=== PATIENT | male | born 1945 | race Caucasian/White ===

== ENCOUNTER 2017-08-29 06:46 | Outpatient (CLI) | payer MEDICARE | END 2017-08-29 06:47 | disposition home or self-care (01) | LOC: BICULT 06:46 | PROVIDERS: ATTEND Internal Medicine Gastroenterology | DX: K21.9 Gastro-esophageal reflux disease without esophagitis (principal); R07.9 Chest pain, unspecified; R16.0 Hepatomegaly, not elsewhere classified | CPT/HCPCS: 76705 ==

== ENCOUNTER 2017-11-26 08:34 | Outpatient (CLI) | payer MEDICARE ==
[2017-11-26] MEDS ORDERED: Iopamidol 370 76% 100 ML VIAL ONE (09:00)
--- NOTE | 2017-11-26 11:31 | CT ---
CT ABDOMEN AND PELVIS WITH IV CONTRAST: Indication: Right sided flank pain for the last 3-4 months. The patient is also having right upper qu adrant pain with constipation. Contrast: 99 cc of Isovue 370 was utilized. Comparison: No CT comparison is available. FINDINGS: Lung bases are clear. There is fatty infiltration of the liver. The gallbladder is under distended. The pancreas, adrenal g lands, and kidneys appear within normal limits. There are moderate calcifications noted involving the abdominal and pelvic vasculature. There is a normal appendix in the right lower quadrant. There is scattered colonic diverticula. Small bowel is normal appearing. No free fluid or enlarged lymph nodes are evident. The bladder, rectum, and perirectal soft tissues are unremarkable. There is a right total hip prosthesis in place. There is scattered degenerative change. IMPRESSION: 1. Fatty liver. 2. Colonic diverticulosis. 3. No definite CT explanation for the patient's right upper quadrant abdominal pain. POS: [facility]
== END 2017-11-26 08:35 | disposition home or self-care (01) ==
LOC: SCSCT 08:34
PROVIDERS: ATTEND Internal Medicine Gastroenterology
DX: R10.11 Right upper quadrant pain (principal); K59.00 Constipation, unspecified; K76.0 Fatty (change of) liver, not elsewhere classified; K57.30 Diverticulosis of large intestine without perforation or abscess without bleeding
CPT/HCPCS: 74177

== ENCOUNTER 2018-01-28 08:26 | Outpatient (CLI) | payer MEDICARE ==
--- NOTE | 2018-01-28 12:03 | MRI ---
MRI THORACIC SPINE WITHOUT CONTRAST: History: M34.14 thoracic radiculitis. Anterior pain. Comparison: None. FINDINGS: There is no acute fracture or malalignment. Mild disc desiccation throughout the thoracic spine. No significant neural foraminal or spinal canal narrowing throughout the thoracic spine. Cord signal is normal. The aortic contour is non-aneurysmal. No paraspinal muscle atrophy. IMPRESSION: No significant neural foraminal or spinal canal narrowing. No compression fracture. No nerve root abu tment. Cord signal is normal. POS: [facility]
== END 2018-01-28 08:27 | disposition home or self-care (01) ==
LOC: BICMRI 08:26
PROVIDERS: ATTEND Anesthesiology Pain Medicine
DX: M54.14 Radiculopathy, thoracic region (principal)
CPT/HCPCS: 72146

== ENCOUNTER 2020-02-16 15:33 | Observation (INO) | payer MEDICARE ==
[2020-02-16 16:06] LABS: #Eosinphils 0.1 thou/uL (0.0-0.7); #Lymphocytes 1.9 thou/uL (1.20-3.40); #Monocytes 0.6 thou/uL (0.11-0.59); #Neutrophils 3.3 thou/uL (1.40-6.50); %Basophils 0.7 % (0.0-1.0); %Eosinophils 2.4 % (0.0-10.0); %Lymphocytes 31.6 % (21.0-51.0); %Monocytes 9.4 % (0.0-10.0); %Neutrophils 55.9 % (42.0-75.0); Hemoglobin 15.8 g/dL (14.0-18.0); Mean Corpuscular HGB CONC 33.4 g/dL (32.0-36.0); Mean Corpuscular Hemoglobin 31.1 pg (27.0-31.0); Mean Corpuscular Volume 93.3 fL (78.0-98.0); Mean Platelet Volume 7.1 fL (7.4-10.4); Platelet Count 246 thou/uL (130-400); RBC Distribution Width 11.2 % (11.5-14.5); Red Blood Cell (RBC) Count 5.08 mill/uL (4.70-6.10); White Blood Cell (WBC) Count 5.9 thou/uL (4.8-10.8)
--- NOTE | 2020-02-16 16:07 | RAD ---
XR Chest 1 View Portable History: Chest pain Comparison: None. Findings: Lungs are clear. No pneumothorax or effusion. Cardiac silhouette and mediastinal contours a re within normal limits. No acute osseous abnormality. Impression: No acute intrathoracic abnormality.
[2020-02-16 16:33] LABS: ALT (SGPT) 31 U/L (8-55); AST (SGOT) 32 U/L (5-34); Alkaline Phosphatase 96 U/L (40-110); Anion Gap 15 mmol/L (10-20); BUN (Urea Nitrogen) 17 mg/dL (8.4-25.7); Bilirubin, Total 0.5 mg/dL (0.2-1.2); Calc. Creatinine Clearance 0 mL/min (70-130); Calcium 8.8 mg/dL (7.8-10.44); Carbon Dioxide 24 mmol/L (23-31); Chloride 108 mmol/L (98-107); Globulin 2.9 g/dL (2.4-3.5); Glucose 84 mg/dL (83-110); Potassium 4.7 mmol/L (3.5-5.1); Protein, Total 6.9 g/dL (5.8-8.1); Sodium 142 mmol/L (136-145)
[2020-02-16] MEDS ORDERED: Lidocaine Viscous Sol 2% 15 ml UD Cup ONE (17:59)
[2020-02-16] MEDS ORDERED: Aspirin Chewable 81 MG TAB ONE (17:59)
[2020-02-16] MEDS ORDERED: Mag-Al 1200 mg/1200 mg/30 ML UDCUP ONE (18:00)
[2020-02-16] MEDS ORDERED: Labetalol HCl 100 MG/20 ML VIAL ONE (20:13)
[2020-02-16] MEDS ORDERED: Nitroglycerin 0.4 MG TAB (25 Tab Bottle) SL PRN (20:55)
[2020-02-16] MEDS ORDERED: Acetaminophen 325 MG TAB PO PRN (20:57)
[2020-02-16] MEDS ORDERED: Acetaminophen 650 MG Suppository PR PRN (20:57)
--- NOTE | 2020-02-16 22:25 | PDOC.HHP ---
Hospitalist HPI - History of Present Illness History of Present Illness: ADMISSION DATE: 02/16/2020 TIME OF ASSESSMENT: 1999 PRIMARY CARE PHYSICIAN: Dr. Veras CHIEF COMPLAINT: Chest pain HPI: This is a 74-year-old gentleman who presents to the emergency department with complaints of chest pain that started earlier this morning. He states he was sitting down having a cup of coffee when it began and states it was a 4 out of 10 in severity, substernal, and nonradiating. It has been intermittent throughout the day and at the moment he has no chest pain unless he takes a deep breath which then causes discomfort. Denies any trauma or injuries. He reports feeling like it took his breath away early this morning but otherwise denies having any respiratory type symptoms. Has not experienced any breathlessness with exertion. Denies having any cough or hemoptysis. No recent fevers chills or sweats. He did note that his blood pressure was elevated in the 160s to 170s range systolic. Denies having any nausea or vomiting. Reports having history of GERD with epigastric discomfort but states this feels different and is higher in the midsternal region. Also reports having issues with narrowing of his e sophagus which did require dilation in the past. Patient reports having a stress test in the past but it has been more than 2 years. Also states that he recently underwent an echocardiogram. He was told by Dr. Veras that he wanted him to see a business data analyst and has an appointment scheduled with Dr. Horton for 02/25/2020. He recently had his home medications adjusted. ED COURSE: EKG done in the emergency department showed a normal sinus rhythm with a heart of 63. He had a complete right bundle branch block. No ST changes or T wave abnormalities. Labs showed a white count of 5.9, hemoglobin 15.8, hematocrit 47.3, platelets 246, neutrophils 55.9%. Sodium 142, potassium 4.7, BUN 17, creatinine 0.88, GFR 85. LFTs normal. Initial troponin negative. Chest x-ray obtained demonstrated no acute intrathoracic abnormality. In the emergency department he was given 20 mg of IV labetalol for his blood pressure. He received a GI cocktail and was given 324 mg of aspirin. PAST MEDICAL HISTORY: 1. Hypertension 2. GERD 3. 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 Obesity 5. History of right bundle branch block. PAST SURGICAL HISTORY: 1. Right hip replacement 2. Left knee surgery SOCIAL HISTORY: Denies any tobacco use alcohol consumption or drug use. He lives with his . Fully independent at baseline. FAMILY HISTORY: Denies any family history of heart disease. ALLERGIES: No known drug allergies CURRENT MEDICATIONS: 1. Gabapentin 300 mg p.o. daily 2. Losartan 100 mg p.o. daily 3. Nexium 40 mg p.o. twice daily 4. Tamsulosin 0.4 mg p.o. daily - Exam General Appearance: NAD General - other findings: VS: Temp 98.2, HR 53, O2 sat 96% on room air, RR 18, BP 165/76. Eye: PERRL, anicteric sclera ENT: normocephalic atraumatic, no oropharyngeal lesions Neck: supple, symmetric, no lymphadenopathy Heart: RRR, no murmur, no gallops, no rubs, normal peripheral pulses Respiratory: CTAB, no wheezes, no rales, no ronchi, normal chest expansion Gastrointestinal: soft, non-tender, non-distended, normal bowel sounds Extremities: no edema Skin: normal turgor, no lesions, no rashes Neurological: cranial nerve grossly intact, normal sensation to touch Musculoskeletal: normal tone, normal strength, no muscle wasting Psychiatric: normal affect, normal behavior, A&O x 3 Hospitalist Results - Labs Result Diagrams: 02/16/20 15:52 02/16/20 15:52 Lab results: WBC 5.9 thou/uL (4.8-10.8) 02/16/20 15:52 Hgb 15.8 g/dL (14.0-18.0) 02/16/20 15:52 Hct 47.3 % (42.0-52.0) 02/16/20 15:52 MCV 93.3 fL (78.0-98.0) 02/16/20 15:52 Plt Count 246 thou/uL (130-400) 02/16/20 15:52 Neutrophils % 55.9 % (42.0-75.0) 02/16/20 15:52 Sodium 142 mmol/L (136-145) 02/16/20 15:52 Potassium 4.7 mmol/L (3.5-5.1) 02/16/20 15:52 Chloride 108 mmol/L (98-107) H 02/16/20 15:52 Carbon Dioxide 24 mmol/L (23-31) 02/16/20 15:52 BUN 17 mg/dL (8.4-25.7) 02/16/20 15:52 Creatinine 0.88 mg/dL (0.7-1.3) 02/16/20 15:52 Glucose 84 mg/dL (83-110) 02/16/20 15:52 Calcium 8.8 mg/dL (7.8-10.44) 02/16/20 15:52 Total Bilirubin 0.5 mg/dL (0.2-1.2) 02/16/20 15:52 AST 32 U/L (5-34) 02/16/20 15:52 ALT 31 U/L (8-55) 02/16/20 15:52 Alkaline Phosphatase 96 U/L (40-110) 02/16/20 15:52 Troponin I 0.013 ng/mL (< 0.028) 02/16/20 18:56 Serum Total Protein 6.9 g/dL (5.8-8.1) 02/16/20 15:52 Albumin 4.0 g/dL (3.4-4.8) 02/16/20 15:52 - Radiology Interpretation Chest x-ray Status: report reviewed by ia Hospitalist H&P A/P - Problem (1) Chest pain Code(s): R07.9 - CHEST PAIN, UNSPECIFIED Status: Acute Assessment and Plan: Cardiac monitoring Continue to trend troponins Check D-Dimer, Mg+ and TSH CTA if D-dimer elevated NPO after midnight Stress test in the AM Continue ASA Lipid panel with AM labs (2) Hypertension Code(s): I10 - ESSENTIAL (PRIMARY) HYPERTENSION Status: Chronic Assessment and Plan: Monitor BP Resume home medications once verified (3) GERD (gastroesophageal reflux disease) Code(s): K21.9 - GASTRO-ESOPHAGEAL REFLUX DISEASE WITHOUT ESOPHAGITIS Status: Chronic Assessment and Plan: Famotidine 20 mg PO BID GI Cocktail Consider GI eval if cardiac work-up negative and pain persists (Could be done as outpatient) (4) Obesity Code(s): E66.9 - OBESITY, UNSPECIFIED Status: Chronic - Plan Plan: CODE STATUS FULL DVT Prophylaxis with mechanical SCDs. Walking program ordered Lovenox held given GI history, possibility of underlying eophagitis, gastritis.
[2020-02-16] MEDS ORDERED: Famotidine 20 MG TAB PO SCH (22:45)
[2020-02-17] MEDS ORDERED: Famotidine 20 MG TAB ONE (00:44)
[2020-02-17 01:18] LABS: Troponin I Less than 0.010 ng/mL (< 0.028)
[2020-02-17 05:08] LABS: #Eosinphils 0.2 thou/uL (0.0-0.7); #Lymphocytes 1.8 thou/uL (1.20-3.40); #Monocytes 0.6 thou/uL (0.11-0.59); #Neutrophils 3.9 thou/uL (1.40-6.50); %Basophils 0.7 % (0.0-1.0); %Eosinophils 3.3 % (0.0-10.0); %Lymphocytes 27.1 % (21.0-51.0); %Monocytes 9.3 % (0.0-10.0); %Neutrophils 59.6 % (42.0-75.0); Hemoglobin 15.7 g/dL (14.0-18.0); Mean Corpuscular HGB CONC 33.3 g/dL (32.0-36.0); Mean Corpuscular Hemoglobin 31.3 pg (27.0-31.0); Platelet Count 228 thou/uL (130-400); RBC Distribution Width 11.4 % (11.5-14.5); Red Blood Cell (RBC) Count 5.01 mill/uL (4.70-6.10); White Blood Cell (WBC) Count 6.5 thou/uL (4.8-10.8)
[2020-02-17 05:31] LABS: Anion Gap 12 mmol/L (10-20); BUN (Urea Nitrogen) 18 mg/dL (8.4-25.7); Calc. Creatinine Clearance 0 mL/min (70-130); Calcium 8.8 mg/dL (7.8-10.44); Carbon Dioxide 30 mmol/L (23-31); Cardiac Risk 4.3 (Less than 4.5); Chloride 107 mmol/L (98-107); Cholesterol 170 mg/dl (< 200 Desired); Glucose 96 mg/dL (83-110); HDL Cholesterol 40 mg/dL (>60 Neg Risk); LDL Cholesterol, Calculated 118 mg/dL; Potassium 4.6 mmol/L (3.5-5.1); Sodium 144 mmol/L (136-145); Triglycerides 59 mg/dL (Less than 150)
[2020-02-17] MEDS ORDERED: hydrALAZINE 20 MG/ML VIAL SLOW IVP PRN (08:47)
[2020-02-17] MEDS ORDERED: Aspirin Chewable 81 MG TAB PO SCH (09:00)
[2020-02-17] MEDS ORDERED: Famotidine 20 MG TAB PO SCH (09:00)
[2020-02-17] MEDS ORDERED: ADENOSINE 60 MG/20 ML VIAL ONE (09:09)
--- NOTE | 2020-02-17 12:18 | NM ---
NM Cardiac Stress W EF WF History: Chest pain Comparison: None. Findings: Stress and rest was performed after the intravenous administration of 32.3 and 9.3 mCi tech netium 99m sestamibi, respectively. No scar or reversible ischemia. Wall motion is normal. Calculated ejection fraction is 60%. Impression: Normal nuclear medicine cardiac stress test and ejection fraction.
[2020-02-17 12:30] LABS: SARS-CoV-2 MS2 Positive; SARS-CoV-2 N Gene Negative; SARS-CoV-2 S Gene Negative; SARS-CoV-2 by NAA Not Detected (NotDetected); SARS-CoV-2 orf1ab Negative
[2020-02-17] MEDS ORDERED: Aspirin Chewable 81 MG TAB ONE (12:37)
--- NOTE | 2020-02-17 17:25 | PDOC.DS.DS ---
Provider - Provider Date of Admission: 02/16/20 19:06 Admitting Provider: Jorge Hernandez DO Primary Care Physician: FAHAD Khan Course - Hospital Course Hospital Course: 74-year-old male presented with chest pain -He is ruled out for acute coronary syndrome with serial troponin and they were negative. He went through a nuclear stress test and it is negative for ischemia; EF of 65% Patient has an appointment with Dr. Horton next week. TSh in the normal range LDL is 118. His LFTs in the normal range. I gave him a low-dose Zocor. He is not on statin in the past. Encouraged him to have lifestyle modifications including diet and exercise. he can also discuss with Dr. Horton about continuing this statin versus trial of lifestyle modifications in the next month or 2. I believe he would benefit with starting him on a statin given his age as well as obesity. He is not diabetic. I also encouraged him to discuss with Dr. Horton whether to continue this Zocor but at higher dose versus switching it to Lipitor. GERD (gastroesophageal reflux disease) -Patient is on a PPI at home. Stable to be discharged home today. Resuscitation Status: 02/16/20 20:57 Resuscitation Status Routine Co-Sign Provider: Resuscitation Status: FULL: Full Resuscitation - Labs Lab Results: 02/17/20 04:54 02/17/20 04:54 Abnormal Lab Results - Last 48 hrs 02/16/20 15:52: MCH 31.1 H, RDW 11.2 L, MPV 7.1 L, Monocytes # 0.6 H 02/16/20 15:52: Chloride 108 H 02/17/20 00:30: D-Dimer 0.45 H 02/17/20 04:54: MCH 31.3 H, RDW 11.4 L, MPV 7.0 L, Monocytes # 0.6 H - Physical Exam Physical Exam: The patient was seen and examined on the day of discharge. Patient seen after his stress test is completed. His stress test is negative. Discussed his discharge plan. Patient has an appointment in the coming week with Dr. Horton. He also noted to have some blood after urine. Trace amount. No prior history of any hematuria. He does have a history of BPH and he is on Flomax. Plan - Discharge Medications Prescriptions: Aspirin Chewable [Aspirin Chewable Tablet] 81 mg PO DAILY 30 Days #30 tab Simvastatin [Zocor] 20 mg PO DAILY 30 Days #30 tablet Home Medications: Medication Instructions Recorded Confirmed Type Aspirin Chewable [Aspirin Chewable 81 mg PO DAILY 30 Days #30 tab 02/17/20 Rx Tablet] Simvastatin [Zocor] 20 mg PO DAILY 30 Days #30 tablet 02/17/20 Rx Allergies: No Known Drug Allergies Allergy (Unverified 02/16/20 22:30) PER ER NOTES - Discharge Instructions Discharge Instructions:: Follow-up in 1 week Activity:: Activity as Tolerated Nourishment:: Heart Healthy Diet - Follow up Plan Referrals: Addie Willson FNP [Primary Care Provider] - Disposition: HOME Quality - Care Measures CORE MEASURES:: N/A
--- NOTE | 2020-02-21 16:51 | EKG ---
Test Reason : Blood Pressure : / mmHG Vent. Rate : 063 BPM Atrial Rate : 063 BPM P-R Int : 150 ms QRS Dur : 138 ms QT Int : 426 ms P-R-T Axes : 004 -06 000 degrees QTc Int : 435 ms Normal sinus rhythm Right bundle branch block Minimal voltage criteria for LVH, may be normal variant Abnormal ECG Confirmed by MAYKEL CHAHAL ([id number]), website/blog editor EVGENY CID ([id number]) on 02/21/2020 4:51:09 PM Referred By: Confirmed By:MAYKEL Serra
== END 2020-02-17 13:35 | disposition home or self-care (01) ==
LOC: ERS 15:33 → ERHOLD 19:06
PROVIDERS: ADMIT Family Medicine; ATTEND Internal Medicine
DX: R07.9 Chest pain, unspecified (principal); K21.9 Gastro-esophageal reflux disease without esophagitis; I10 Essential (primary) hypertension; E66.9 Obesity, unspecified; Z96.641 Presence of right artificial hip joint; Z20.828 Contact with and (suspected) exposure to other viral communicable diseases
CPT/HCPCS: 71045; 78452; 80048; 80053; 80061; 83735; 83880; 84443; 84484 ×3; 85025 ×2; 85379; 93005; 93017; 96374; 96375; 99285; A9500; G0378 ×2; U0003; 36415; 87635; J0153; J0360

== ENCOUNTER 2020-06-24 17:40 | Emergency (ER) | payer MEDICARE ==
[~2020-06-24 17:40] MED LIST: Iopamidol 370 76% 100 ML VIAL ONE
[2020-06-24 18:37] LABS: #Basophils 0.1 thou/uL (0.0-0.2); #Eosinphils 0.2 thou/uL (0.0-0.7); #Monocytes 0.6 thou/uL (0.11-0.59); #Neutrophils 3.7 thou/uL (1.40-6.50); %Eosinophils 3.4 % (0.0-10.0); %Lymphocytes 29.9 % (21.0-51.0); %Monocytes 9.3 % (0.0-10.0); %Neutrophils 56.3 % (42.0-75.0); Hemoglobin 15.5 g/dL (14.0-18.0); Mean Corpuscular HGB CONC 33.5 g/dL (32.0-36.0); Mean Corpuscular Hemoglobin 31.6 pg (27.0-31.0); Mean Corpuscular Volume 94.4 fL (78.0-98.0); Mean Platelet Volume 7.3 fL (7.4-10.4); Platelet Count 234 thou/uL (130-400); RBC Distribution Width 11.5 % (11.5-14.5); Red Blood Cell (RBC) Count 4.91 mill/uL (4.70-6.10); White Blood Cell (WBC) Count 6.6 thou/uL (4.8-10.8)
[2020-06-24 19:00] LABS: ALT (SGPT) 30 U/L (8-55); AST (SGOT) 32 U/L (5-34); Alkaline Phosphatase 116 U/L (40-110); Anion Gap 13 mmol/L (10-20); BUN (Urea Nitrogen) 19 mg/dL (8.4-25.7); Bilirubin, Total 0.3 mg/dL (0.2-1.2); Calc. Creatinine Clearance 0 mL/min (70-130); Calcium 9.5 mg/dL (7.8-10.44); Carbon Dioxide 24 mmol/L (23-31); Chloride 107 mmol/L (98-107); Glucose 103 mg/dL (83-110); Lipase 28 U/L (8-78); Sodium 140 mmol/L (136-145)
[2020-06-24] MEDS ORDERED: Morphine 4 MG/ML VIAL ONE (19:56)
[2020-06-24] MEDS ORDERED: Ondansetron PF 4 MG/2 ML Vial ONE (19:56)
[2020-06-24 20:29] LABS: Bilirubin Negative (Negative); Blood, Urine Negative (Negative); Clarity Clear (Clear); Glucose, Urine (Dipstick) Normal (Negative); Ketone, Urine Negative (Negative); Leukocyte Negative Leu/uL (Negative); Nitrite Negative (Negative); Protein, Urine (Dipstick) Negative (Neg-Trace); Specific Gravity, Urine 1.014 (1.002-1.036); Urobilinogen Normal mg/dL (Less than 2)
== END 2020-06-24 21:57 | disposition home or self-care (01) ==
LOC: ERS 17:40
DX: K57.32 Diverticulitis of large intestine without perforation or abscess without bleeding (principal); I10 Essential (primary) hypertension; K21.9 Gastro-esophageal reflux disease without esophagitis
CPT/HCPCS: 36415; 74177; 80053; 81003; 83690; 85025; 94760; 96374; 96375; J2270; J2405; Q9967

== ENCOUNTER 2020-06-30 15:00 | Inpatient (IN) | payer MEDICARE ==
[2020-06-30 20:12] LABS: Anion Gap 16 mmol/L (10-20); BUN (Urea Nitrogen) 20 mg/dL (8.4-25.7); Calc. Creatinine Clearance 0 mL/min (70-130); Carbon Dioxide 24 mmol/L (23-31); Chloride 106 mmol/L (98-107); Glucose 74 mg/dL (83-110); Potassium 4.7 mmol/L (3.5-5.1); Sodium 141 mmol/L (136-145)
[2020-06-30 20:33] LABS: Hemoglobin 15.5 g/dL (13.5-17.5); Mean Corpuscular HGB CONC 33.3 g/dL (32.0-36.0); Mean Corpuscular Hemoglobin 30.4 pg (27.0-33.0); Mean Corpuscular Volume 91.4 fl (81.2-95.1); Mean Platelet Volume 10.2 fl (7.4-10.4); Platelet Count 219 10x3/uL (150-450); RBC Distribution Width 12.5 % (11.5-14.5); White Blood Cell (WBC) Count 6.6 10x3/uL (3.5-10.5)
[2020-07-01 09:56] VITALS: BMI 35.4
[2020-07-01 13:46] LABS: SARS-CoV-2 NAA Rapid Test Not Detected (NotDetected)
[2020-07-02] MEDS ORDERED: Midazolam HCl 2 mg/2 ml Vial ONE (06:38)
[2020-07-02] MEDS ORDERED: Fentanyl 100 MCG/2 ML VIAL ONE (06:38)
[2020-07-02] MEDS ORDERED: Vecuronium 10 MG VIAL ONE ×3 (06:39→07:57)
[2020-07-02] MEDS ORDERED: Midazolam HCl 5 mg/5 ml Vial ONE (06:39)
[2020-07-02] MEDS ORDERED: Dexmedetomidine 200 MCG/2 ML VIAL ONE (06:39)
[2020-07-02] MEDS ORDERED: Albumin 5% 500 ML ONE (07:49)
[2020-07-02] MEDS ORDERED: Glycopyrrolate 0.2 MG/ML 5 ML SYRINGE ONE (07:57)
[2020-07-02] MEDS ORDERED: Aminocaproic Acid 5 GM/20 ML VIAL ONE (07:57)
[2020-07-02] MEDS ORDERED: PHENYLEPHRINE-NS 100 MCG/ML 10 ML SYRINGE ONE (07:57)
[2020-07-02] MEDS ORDERED: Nitroglycerin 50 MG/250 ML BOT ONE (07:57)
[2020-07-02] MEDS ORDERED: Heparin 30,000 units/30 ml VIAL ONE (07:57)
[2020-07-02] MEDS ORDERED: Lidocaine 1% PF 5 ML VIAL ONE ×2 (07:57)
[2020-07-02] MEDS ORDERED: Heparin 5,000 UNITS/ML VIAL ONE (07:57)
[2020-07-02] MEDS ORDERED: Thrombin 5000 UNITS/5 ML VIAL ONE (07:57)
[2020-07-02] MEDS ORDERED: Dexamethasone 20 MG/5 ML VIAL ONE (07:57)
[2020-07-02] MEDS ORDERED: Mannitol 12.5 GM/50 ML ONE (07:57)
[2020-07-02] MEDS ORDERED: Ondansetron PF 4 MG/2 ML Vial ONE (07:57)
[2020-07-02] MEDS ORDERED: Cardioplegic Soln 1,000 ML BAG ONE (07:57)
[2020-07-02] MEDS ORDERED: Papaverine 60 MG/2 ML VIAL ONE (07:57)
[2020-07-02] MEDS ORDERED: Protamine Sulfate 250 MG/25 ML VIAL ONE (07:57)
[2020-07-02] MEDS ORDERED: Lidocaine 2% PF 100 mg/5 ml Syringe ONE (07:57)
[2020-07-02] MEDS ORDERED: ePHEDrine Sulfate 50 MG/10 ML VIAL ONE (07:57)
[2020-07-02] MEDS ORDERED: Calcium Chloride 1 GM/10 ML Abboject SYRINGE ONE (07:57)
[2020-07-02] MEDS ORDERED: Potassium Chloride 60 MEQ/30 ML VIAL ONE (07:57)
[2020-07-02] MEDS ORDERED: Ketorolac Tromethamine 30 MG/ML VIAL ONE (07:57)
[2020-07-02] MEDS ORDERED: Magnesium Sulfate 1 GM/2 ML VIAL ONE (07:57)
[2020-07-02] MEDS ORDERED: Sodium Bicarb 50 MEQ/50 ML Abboject 8.4% SYRINGE ONE (07:57)
[2020-07-02] MEDS ORDERED: Post-Op Insulin Drip Protocol IVPB ONE (11:11)
[2020-07-02] MEDS ORDERED: Bisacodyl 5 MG TAB PO PRN (11:11)
[2020-07-02] MEDS ORDERED: DOPamine 400 MG/D5W 250 ML 250 ML IVPB PRN (11:11)
[2020-07-02] MEDS ORDERED: hydrALAZINE 20 MG/ML VIAL SLOW IVP PRN (11:11)
[2020-07-02] MEDS ORDERED: Fentanyl 100 MCG/2 ML VIAL SLOW IVP PRN (11:11)
[2020-07-02] MEDS ORDERED: niCARdipine 25 MG in Sodium Chloride 0.9% 250 ML 250 ML IVPB PRN (11:11)
[2020-07-02] MEDS ORDERED: Hetastarch 6% 500 ML 500 ML IVPB PRN (11:11)
[2020-07-02] MEDS ORDERED: Mag-Al 1200 mg/1200 mg/30 ML UDCUP PO PRN (11:11)
[2020-07-02] MEDS ORDERED: Nitroglycerin 50 MG/250 ML BOT 250 ML IVPB PRN (11:11)
[2020-07-02] MEDS ORDERED: Promethazine HCl 25 MG/ML VIAL IVPB PRN (11:11)
[2020-07-02] MEDS ORDERED: Guaifenesin DM 100-10/5 ML UDCUP PO PRN (11:11)
[2020-07-02] MEDS ORDERED: Bisacodyl 10 MG SUPP PR PRN (11:11)
[2020-07-02] MEDS ORDERED: Norepinephrine 8 MG/0.9% NS 250 ML IVPB PRN (11:11)
[2020-07-02] MEDS ORDERED: Morphine 2 MG/ML VIAL SLOW IVP PRN (11:11)
[2020-07-02] MEDS ORDERED: Acetaminophen 325 MG TAB PO PRN (11:11)
[2020-07-02] MEDS: Ondansetron PF 4 MG/2 ML Vial IVP PRN (11:23)
[2020-07-02] MEDS: Fentanyl 100 MCG/2 ML VIAL SLOW IVP PRN ×5 (11:23→22:15)
[2020-07-02] MEDS: Lactated Ringer's 1,000 ML IV SCH ×2 (11:29→20:36)
[2020-07-02] MEDS ORDERED: Dextrose 5% in Water 1,000 ML IV PRN (11:30)
[2020-07-02] MEDS ORDERED: Dextrose 50% Abboject 50 ML SYRINGE SLOW IVP PRN (11:30)
[2020-07-02] MEDS ORDERED: Lantus 1000 UNITS/10 ML VIAL SC PRN (11:30)
[2020-07-02] MEDS ORDERED: HUMULIN R 100 UNITS in Sodium Chloride 0.9% 100 ML IVPB SCH (11:30)
[2020-07-02] MEDS: Ketorolac Tromethamine 30 MG/ML VIAL IVP SCH ×3 (11:31→21:17)
[2020-07-02 11:41] LABS: INR-International Normal Ratio 1.2; PTT 29.8 sec (22.9-36.1); Prothrombin Time 15.5 sec (12.0-14.7)
[2020-07-02 11:47] LABS: #Eosinphils 0.1 thou/uL (0.0-0.7); #Lymphocytes 1.2 thou/uL (1.20-3.40); #Monocytes 0.6 thou/uL (0.11-0.59); #Neutrophils 12.7 thou/uL (1.40-6.50); %Basophils 0.1 % (0.0-1.0); %Eosinophils 0.5 % (0.0-10.0); %Lymphocytes 8.5 % (21.0-51.0); %Monocytes 3.9 % (0.0-10.0); Hemoglobin 12.4 g/dL (14.0-18.0); Mean Corpuscular HGB CONC 32.4 g/dL (32.0-36.0); Mean Corpuscular Hemoglobin 30.7 pg (27.0-31.0); Mean Corpuscular Volume 94.7 fL (78.0-98.0); Mean Platelet Volume 7.3 fL (7.4-10.4); Platelet Count 179 thou/uL (130-400); RBC Distribution Width 11.4 % (11.5-14.5); Red Blood Cell (RBC) Count 4.04 mill/uL (4.70-6.10); White Blood Cell (WBC) Count 14.5 thou/uL (4.8-10.8)
[2020-07-02 11:51] LABS: Anion Gap 8 mmol/L (10-20); BUN (Urea Nitrogen) 14 mg/dL (8.4-25.7); Calc. Creatinine Clearance 141 mL/min (70-130); Calcium 7.4 mg/dL (7.8-10.44); Carbon Dioxide 24 mmol/L (23-31); Chloride 112 mmol/L (98-107); Glucose 157 mg/dL (83-110); Potassium 4.1 mmol/L (3.5-5.1); Sodium 140 mmol/L (136-145)
[2020-07-02] MEDS: Insulin Regular 300 UNITS/3 ML VIAL SC PRN ×2 (11:56→15:34)
[2020-07-02] MEDS: CEFAZOLIN 2 GM in Premix Bag 1 BAG IVPB SCH ×2 (13:08→21:18)
[2020-07-02] MEDS: HYDROcodone/Acetaminophen 5/325 mg Tablet PO PRN ×2 (15:17→20:03)
[2020-07-02 16:59] LABS: Hemoglobin 13.2 g/dL (14.0-18.0)
[2020-07-02] MEDS: Potassium Chloride 20 MEQ/100 ML PREMIX BAG IVPB PRN (17:47)
[2020-07-02] MEDS ORDERED: BIO FREEZE TOP PRN (18:44)
[2020-07-02] MEDS: Famotidine/PF 20 mg/2ml Vial SLOW IVP SCH (20:05)
[2020-07-02] MEDS: Atorvastatin Calcium 40 MG TAB PO SCH (20:05)
[2020-07-02] MEDS ORDERED: Atorvastatin Calcium 10 MG TAB PO SCH (21:00)
[2020-07-02] MEDS: Cyclobenzaprine 10 MG TAB PO PRN (21:19)
[2020-07-03] MEDS: HYDROcodone/Acetaminophen 5/325 mg Tablet PO PRN ×4 (00:10→20:31)
[2020-07-03] MEDS: Lactated Ringer's 1,000 ML IV SCH (02:01)
[2020-07-03] MEDS: Fentanyl 100 MCG/2 ML VIAL SLOW IVP PRN ×3 (02:02→08:37)
[2020-07-03] MEDS: Ketorolac Tromethamine 30 MG/ML VIAL IVP SCH ×3 (03:18→16:18)
[2020-07-03 03:35] LABS: #Lymphocytes 0.9 thou/uL (1.20-3.40); #Monocytes 0.9 thou/uL (0.11-0.59); #Neutrophils 8.7 thou/uL (1.40-6.50); %Basophils 0.1 % (0.0-1.0); %Eosinophils 0.1 % (0.0-10.0); %Lymphocytes 8.4 % (21.0-51.0); %Monocytes 8.2 % (0.0-10.0); %Neutrophils 83.3 % (42.0-75.0); Hemoglobin 12.3 g/dL (14.0-18.0); Mean Corpuscular HGB CONC 33.8 g/dL (32.0-36.0); Mean Corpuscular Hemoglobin 32.2 pg (27.0-31.0); Mean Corpuscular Volume 95.2 fL (78.0-98.0); Mean Platelet Volume 7.1 fL (7.4-10.4); Platelet Count 197 thou/uL (130-400); RBC Distribution Width 11.6 % (11.5-14.5); Red Blood Cell (RBC) Count 3.84 mill/uL (4.70-6.10); White Blood Cell (WBC) Count 10.4 thou/uL (4.8-10.8)
[2020-07-03 03:53] LABS: Anion Gap 10 mmol/L (10-20); BUN (Urea Nitrogen) 18 mg/dL (8.4-25.7); Calc. Creatinine Clearance 144 mL/min (70-130); Carbon Dioxide 24 mmol/L (23-31); Chloride 109 mmol/L (98-107); Glucose 126 mg/dL (83-110); Sodium 139 mmol/L (136-145)
[2020-07-03] MEDS: Potassium Chloride 20 MEQ/100 ML PREMIX BAG IVPB PRN (04:22)
[2020-07-03] MEDS: CEFAZOLIN 2 GM in Premix Bag 1 BAG IVPB SCH (05:40)
[2020-07-03] MEDS: Ondansetron PF 4 MG/2 ML Vial IVP PRN (06:41)
[2020-07-03] MEDS: Famotidine/PF 20 mg/2ml Vial SLOW IVP SCH (07:23)
[2020-07-03] MEDS: Polyethylene Glycol 3350 17 GM Packet PO SCH (07:24)
[2020-07-03] MEDS: Enoxaparin Sodium 40 MG/0.4 ML SYRINGE SC SCH (07:26)
[2020-07-03] MEDS: Cyclobenzaprine 10 MG TAB PO PRN (08:36)
[2020-07-03] MEDS ORDERED: Aspirin 325 MG TAB PO SCH (09:00)
[2020-07-03] MEDS ORDERED: Dutasteride 0.5 MG CAP PO SCH (11:00)
[2020-07-03] MEDS ORDERED: Mineral Oil ENEMA PR PRN (11:18)
[2020-07-03] MEDS ORDERED: diphenhydrAMINE 25 MG CAP PO PRN (11:18)
[2020-07-03] MEDS ORDERED: Zolpidem Tartrate 5 MG TAB PO PRN (11:18)
[2020-07-03] MEDS ORDERED: Bisacodyl 10 MG SUPP PR PRN (11:18)
[2020-07-03] MEDS ORDERED: Guaifenesin DM 100-10/5 ML UDCUP PO PRN (11:18)
[2020-07-03] MEDS ORDERED: Bisacodyl 5 MG TAB PO PRN (11:18)
[2020-07-03] MEDS ORDERED: Nitroglycerin 0.4 MG TAB (25 Tab Bottle) SL PRN (11:18)
[2020-07-03] MEDS: Furosemide 40 MG/4 ML VIAL SLOW IVP SCH ×2 (13:35→14:18)
[2020-07-03] MEDS: Furosemide 20 MG TAB PO SCH (14:18)
[2020-07-03] MEDS: Mag-Al 1200 mg/1200 mg/30 ML UDCUP PO PRN (16:20)
[2020-07-03] MEDS: Atorvastatin Calcium 40 MG TAB PO SCH (20:31)
[2020-07-03] MEDS: Docusate 100 MG CAP PO SCH (20:32)
[2020-07-04] MEDS: HYDROcodone/Acetaminophen 5/325 mg Tablet PO PRN ×4 (01:35→19:39)
[2020-07-04 05:30] LABS: #Lymphocytes 1.2 thou/uL (1.20-3.40); #Monocytes 0.9 thou/uL (0.11-0.59); #Neutrophils 6.7 thou/uL (1.40-6.50); %Basophils 0.2 % (0.0-1.0); %Eosinophils 0.5 % (0.0-10.0); %Lymphocytes 13.4 % (21.0-51.0); %Monocytes 10.4 % (0.0-10.0); %Neutrophils 75.6 % (42.0-75.0); Mean Corpuscular HGB CONC 32.2 g/dL (32.0-36.0); Mean Corpuscular Hemoglobin 30.7 pg (27.0-31.0); Mean Corpuscular Volume 95.4 fL (78.0-98.0); Mean Platelet Volume 7.9 fL (7.4-10.4); Platelet Count 171 thou/uL (130-400); RBC Distribution Width 11.7 % (11.5-14.5); Red Blood Cell (RBC) Count 3.92 mill/uL (4.70-6.10); White Blood Cell (WBC) Count 8.8 thou/uL (4.8-10.8)
[2020-07-04 05:48] LABS: Anion Gap 10 mmol/L (10-20); BUN (Urea Nitrogen) 20 mg/dL (8.4-25.7); Calc. Creatinine Clearance 131 mL/min (70-130); Calcium 8.1 mg/dL (7.8-10.44); Carbon Dioxide 24 mmol/L (23-31); Chloride 107 mmol/L (98-107); Glucose 107 mg/dL (83-110); Sodium 137 mmol/L (136-145)
[2020-07-04] MEDS: Enoxaparin Sodium 40 MG/0.4 ML SYRINGE SC SCH (08:17)
[2020-07-04] MEDS: Dutasteride 0.5 MG CAP PO SCH (08:18)
[2020-07-04] MEDS: Furosemide 20 MG TAB PO SCH ×2 (08:18→13:55)
[2020-07-04] MEDS: Aspirin 81 mg Enteric Coated Tablet PO SCH (08:18)
[2020-07-04] MEDS: Docusate 100 MG CAP PO SCH ×2 (08:18→19:39)
[2020-07-04] MEDS: Polyethylene Glycol 3350 17 GM Packet PO SCH (08:18)
[2020-07-04] MEDS ORDERED: Colchicine 0.6 MG TAB PO SCH (10:00)
[2020-07-04] MEDS: Atorvastatin Calcium 40 MG TAB PO SCH (19:39)
[2020-07-04] MEDS: Colchicine 0.6 MG TAB PO SCH (19:39)
[2020-07-04] MEDS: Cyclobenzaprine 10 MG TAB PO PRN (21:34)
[2020-07-05 04:36] LABS: #Eosinphils 0.2 thou/uL (0.0-0.7); #Monocytes 0.9 thou/uL (0.11-0.59); #Neutrophils 4.3 thou/uL (1.40-6.50); %Basophils 0.1 % (0.0-1.0); %Eosinophils 2.9 % (0.0-10.0); %Lymphocytes 27.1 % (21.0-51.0); %Monocytes 12.2 % (0.0-10.0); %Neutrophils 57.6 % (42.0-75.0); Hemoglobin 11.9 g/dL (14.0-18.0); Mean Corpuscular HGB CONC 33.6 g/dL (32.0-36.0); Mean Corpuscular Volume 95.2 fL (78.0-98.0); Mean Platelet Volume 7.5 fL (7.4-10.4); Platelet Count 179 thou/uL (130-400); RBC Distribution Width 11.4 % (11.5-14.5); Red Blood Cell (RBC) Count 3.71 mill/uL (4.70-6.10); White Blood Cell (WBC) Count 7.5 thou/uL (4.8-10.8)
[2020-07-05] MEDS: HYDROcodone/Acetaminophen 5/325 mg Tablet PO PRN ×4 (04:48→23:02)
[2020-07-05 04:53] LABS: Anion Gap 8 mmol/L (10-20); BUN (Urea Nitrogen) 13 mg/dL (8.4-25.7); Calc. Creatinine Clearance 128 mL/min (70-130); Calcium 8.4 mg/dL (7.8-10.44); Carbon Dioxide 31 mmol/L (23-31); Chloride 103 mmol/L (98-107); Glucose 94 mg/dL (83-110); Potassium 3.9 mmol/L (3.5-5.1); Sodium 138 mmol/L (136-145)
[2020-07-05] MEDS: Dutasteride 0.5 MG CAP PO SCH (08:18)
[2020-07-05] MEDS: Enoxaparin Sodium 40 MG/0.4 ML SYRINGE SC SCH (08:18)
[2020-07-05] MEDS: Cyclobenzaprine 10 MG TAB PO PRN (08:18)
[2020-07-05] MEDS: Furosemide 20 MG TAB PO SCH ×2 (08:19→13:35)
[2020-07-05] MEDS: Docusate 100 MG CAP PO SCH ×2 (08:19→20:24)
[2020-07-05] MEDS: Famotidine 20 MG TAB PO SCH ×2 (08:19→20:24)
[2020-07-05] MEDS: Aspirin 81 mg Enteric Coated Tablet PO SCH (08:19)
[2020-07-05] MEDS: Colchicine 0.6 MG TAB PO SCH ×2 (08:19→20:24)
[2020-07-05] MEDS: Polyethylene Glycol 3350 17 GM Packet PO SCH (08:19)
[2020-07-05 09:55] LABS: Actual Bicarbonate (HCO3a) 20.4 mEq/L (22-28); Analyzer IN Cardio OR; Base Excess (BEa) -3.6 mEq/L (-2.0 to +3.0); CO2 Tension 33.5 mmHg (35.0-45.0); Calcium, Ionized (arterial) 1.06 mmol/L (1.12-1.30); Carboxyhemoglobin (COHb) 0.1 gm% (0.0-3.0); Hemoglobin (Hb) 12.4 g/dL (14.0-18.0); Potassium - ABG Lab 4.08 mmol/L (3.70-5.30)
[2020-07-05 09:55] LABS: Actual Bicarbonate (HCO3a) 26.6 mEq/L (22-28); Analyzer IN Cardio OR; Base Excess (BEa) 0.8 mEq/L (-2.0 to +3.0); CO2 Tension 48.3 mmHg (35.0-45.0); Calcium, Ionized (arterial) 1.01 mmol/L (1.12-1.30); Carboxyhemoglobin (COHb) 0.3 gm% (0.0-3.0); Hemoglobin (Hb) 10.3 g/dL (14.0-18.0); O2 Tension (PaO2), arterial 326.2 mmHg (> 70.0); Potassium - ABG Lab 4.62 mmol/L (3.70-5.30); pH, Arterial 7.36 (7.35-7.45)
[2020-07-05 09:56] LABS: Actual Bicarbonate (HCO3a) 25.4 mEq/L (22-28); Analyzer IN Cardio OR; Base Excess (BEa) -0.6 mEq/L (-2.0 to +3.0); CO2 Tension 47.8 mmHg (35.0-45.0); Calcium, Ionized (arterial) 0.98 mmol/L (1.12-1.30); Carboxyhemoglobin (COHb) 0.3 gm% (0.0-3.0); Hemoglobin (Hb) 11.8 g/dL (14.0-18.0); Potassium - ABG Lab 4.16 mmol/L (3.70-5.30); pH, Arterial 7.34 (7.35-7.45)
[2020-07-05 09:57] LABS: Actual Bicarbonate (HCO3a) 22.4 mEq/L (22-28); Analyzer IN Cardio OR; CO2 Tension 37.3 mmHg (35.0-45.0); Calcium, Ionized (arterial) 1.12 mmol/L (1.12-1.30); Carboxyhemoglobin (COHb) 0.3 gm% (0.0-3.0); Hemoglobin (Hb) 13.6 g/dL (14.0-18.0); O2 Tension (PaO2), arterial 301.8 mmHg (> 70.0); Potassium - ABG Lab 4.03 mmol/L (3.70-5.30)
[2020-07-05 09:58] LABS: Actual Bicarbonate (HCO3a) 23.1 mEq/L (22-28); Analyzer IN Cardio OR; Base Excess (BEa) -1.5 mEq/L (-2.0 to +3.0); CO2 Tension 38.6 mmHg (35.0-45.0); Calcium, Ionized (arterial) 1.15 mmol/L (1.12-1.30); Carboxyhemoglobin (COHb) 0.5 gm% (0.0-3.0); Hemoglobin (Hb) 14.1 g/dL (14.0-18.0); O2 Tension (PaO2), arterial 419.1 mmHg (> 70.0); Potassium - ABG Lab 3.91 mmol/L (3.70-5.30); Puncture Site Arterial Line; pH, Arterial 7.39 (7.35-7.45)
[2020-07-05 09:59] LABS: Puncture Site Arterial Line
[2020-07-05 09:59] LABS: Puncture Site Arterial Line
[2020-07-05 09:59] LABS: Puncture Site Arterial Line
[2020-07-05 10:03] LABS: O2 Tension (PaO2), arterial 509.8 mmHg (> 70.0); Puncture Site Arterial Line
[2020-07-05] MEDS: Atorvastatin Calcium 40 MG TAB PO SCH (20:24)
[2020-07-05] MEDS: Metoprolol Tartrate 25 MG TAB PO SCH (20:24)
[2020-07-06] MEDS: Polyethylene Glycol 3350 17 GM Packet PO SCH (08:16)
[2020-07-06] MEDS: Colchicine 0.6 MG TAB PO SCH (08:17)
[2020-07-06] MEDS: Famotidine 20 MG TAB PO SCH ×2 (08:17→20:19)
[2020-07-06] MEDS: Aspirin 81 mg Enteric Coated Tablet PO SCH (08:17)
[2020-07-06] MEDS: Docusate 100 MG CAP PO SCH ×2 (08:17→20:19)
[2020-07-06] MEDS: Metoprolol Tartrate 25 MG TAB PO SCH ×3 (08:17→20:20)
[2020-07-06] MEDS: Enoxaparin Sodium 40 MG/0.4 ML SYRINGE SC SCH (08:17)
[2020-07-06] MEDS: Dutasteride 0.5 MG CAP PO SCH (08:17)
[2020-07-06] MEDS ORDERED: Colchicine 0.6 MG TAB PO SCH (09:00)
[2020-07-06] MEDS: HYDROcodone/Acetaminophen 5/325 mg Tablet PO PRN ×2 (11:55→20:17)
[2020-07-06] MEDS: Mag-Al 1200 mg/1200 mg/30 ML UDCUP PO PRN (20:17)
[2020-07-06] MEDS: Atorvastatin Calcium 40 MG TAB PO SCH (20:19)
[2020-07-07] MEDS: HYDROcodone/Acetaminophen 5/325 mg Tablet PO PRN ×2 (07:42→13:59)
[2020-07-07] MEDS: Mag-Al 1200 mg/1200 mg/30 ML UDCUP PO PRN (07:42)
[2020-07-07] MEDS: Docusate 100 MG CAP PO SCH (09:56)
[2020-07-07] MEDS: Aspirin 81 mg Enteric Coated Tablet PO SCH (09:57)
[2020-07-07] MEDS: Dutasteride 0.5 MG CAP PO SCH (09:58)
[2020-07-07] MEDS: Famotidine 20 MG TAB PO SCH (09:58)
[2020-07-07] MEDS: Enoxaparin Sodium 40 MG/0.4 ML SYRINGE SC SCH (09:59)
[2020-07-07] MEDS: Polyethylene Glycol 3350 17 GM Packet PO SCH (09:59)
[2020-07-07 14:10] VITALS: BP 146/72; TEMP 97.8
== END 2020-07-07 14:08 | disposition home or self-care (01) | DRG 236 ==
LOC: SURG A 07-02 06:32 → CCU 07-02 10:06 → 2NO 07-03 10:59
PROVIDERS: ADMIT Thoracic Surgery (Cardiothoracic Vascular Surgery); ATTEND Thoracic Surgery (Cardiothoracic Vascular Surgery)
PROC: 021009W Bypass Coronary Artery, One Artery from Aorta with Autologous Venous Tissue, Open Approach (ICD-10-PCS; principal; 2020-07-02)
PROC: 02100Z9 Bypass Coronary Artery, One Artery from Left Internal Mammary, Open Approach (ICD-10-PCS; 2020-07-02)
PROC: 06BQ0ZZ Excision of Left Saphenous Vein, Open Approach (ICD-10-PCS; 2020-07-02)
PROC: 5A1221Z Performance of Cardiac Output, Continuous (ICD-10-PCS; 2020-07-02)
DX: I25.110 Atherosclerotic heart disease of native coronary artery with unstable angina pectoris (principal); I47.1 Supraventricular tachycardia; I31.9 Disease of pericardium, unspecified; I10 Essential (primary) hypertension; Z96.641 Presence of right artificial hip joint; Z96.612 Presence of left artificial shoulder joint; Z82.49 Family history of ischemic heart disease and other diseases of the circulatory system; E78.2 Mixed hyperlipidemia; E66.9 Obesity, unspecified; Z68.34 Body mass index [BMI] 34.0-34.9, adult
CPT/HCPCS: 36415; 36416; 36430; 71045; 80048; 82805; 85025; 85027; 85610; 85730; 86850; 86870; 86900; 86901; 86922; 93005; 93010; 93798; J0690; J1100; J1642; J1644; J1650; J1815; J1885; J1940; J2001; J2150; J2250; J2405; J2440; J2720; J3010; J3370; J3475; J3480; P9045; S0017; S0028; U0002

== ENCOUNTER 2020-06-30 15:11 | Outpatient (CLI) | payer MEDICARE | END 2020-06-30 15:12 | disposition home or self-care (01) | LOC: LABBT 15:11 | PROVIDERS: ATTEND Thoracic Surgery (Cardiothoracic Vascular Surgery) | DX: Z53.9 Procedure and treatment not carried out, unspecified reason (principal) | CPT/HCPCS: 80048; 85027; 86850; 86900; 86901; U0003; U0005; 86870; 87635; U0002 ==

== ENCOUNTER 2020-07-20 13:44 | Outpatient (CLI) | payer MEDICARE | END 2020-07-20 13:45 | disposition home or self-care (01) | LOC: BICRAD 13:44 | PROVIDERS: ATTEND Thoracic Surgery (Cardiothoracic Vascular Surgery) | DX: I25.110 Atherosclerotic heart disease of native coronary artery with unstable angina pectoris (principal); J98.11 Atelectasis; J90 Pleural effusion, not elsewhere classified | CPT/HCPCS: 71046 ==

== ENCOUNTER 2020-08-04 12:30 | Outpatient (CLI) | payer MEDICARE | END 2020-08-04 12:31 | disposition home or self-care (01) | LOC: BICRAD 12:30 | PROVIDERS: ATTEND Thoracic Surgery (Cardiothoracic Vascular Surgery) | DX: I25.110 Atherosclerotic heart disease of native coronary artery with unstable angina pectoris (principal) | CPT/HCPCS: 71046 ==

== ENCOUNTER 2020-08-10 14:32 | Emergency (ER) | payer MEDICARE ==
[~2020-08-10 14:32] MED LIST changes: -Iopamidol 370 76% 100 ML VIAL ONE; +Iopamidol-370 76% 500 ML 1 ML ONE
[2020-08-10 15:41] LABS: #Basophils 0.1 thou/uL (0.0-0.2); #Eosinphils 0.3 thou/uL (0.0-0.7); #Lymphocytes 1.7 thou/uL (1.20-3.40); #Monocytes 0.8 thou/uL (0.11-0.59); #Neutrophils 6.2 thou/uL (1.40-6.50); %Basophils 0.8 % (0.0-1.0); %Eosinophils 2.9 % (0.0-10.0); %Lymphocytes 19.1 % (21.0-51.0); %Monocytes 8.7 % (0.0-10.0); %Neutrophils 68.4 % (42.0-75.0); Hemoglobin 14.5 g/dL (14.0-18.0); Mean Corpuscular Hemoglobin 30.7 pg (27.0-31.0); Mean Platelet Volume 7.7 fL (7.4-10.4); Platelet Count 253 thou/uL (130-400); Red Blood Cell (RBC) Count 4.73 mill/uL (4.70-6.10)
[2020-08-10 16:11] LABS: ALT (SGPT) 17 U/L (8-55); AST (SGOT) 22 U/L (5-34); Albumin 3.8 g/dL (3.4-4.8); Alkaline Phosphatase 96 U/L (40-110); Anion Gap 11 mmol/L (10-20); BUN (Urea Nitrogen) 12 mg/dL (8.4-25.7); Bilirubin, Total 0.6 mg/dL (0.2-1.2); Calc. Creatinine Clearance 0 mL/min (70-130); Calcium 9.3 mg/dL (7.8-10.44); Carbon Dioxide 25 mmol/L (23-31); Chloride 107 mmol/L (98-107); Globulin 3.3 g/dL (2.4-3.5); Glucose 115 mg/dL (83-110); Potassium 3.9 mmol/L (3.5-5.1); Protein, Total 7.1 g/dL (5.8-8.1); Sodium 139 mmol/L (136-145)
== END 2020-08-10 20:06 | disposition home or self-care (01) ==
LOC: ERS 14:32
DX: R07.9 Chest pain, unspecified (principal); I10 Essential (primary) hypertension; K21.9 Gastro-esophageal reflux disease without esophagitis
CPT/HCPCS: 36415; 71045; 71275; 74174; 80053; 83880; 84484; 85025; 93005; Q9967

== ENCOUNTER 2020-09-13 12:51 | Outpatient (CLI) | payer MEDICARE | END 2020-09-13 12:52 | disposition home or self-care (01) | LOC: BICULT 12:51 | PROVIDERS: ATTEND Family Medicine | DX: R10.9 Unspecified abdominal pain (principal) | CPT/HCPCS: 76770 ==

== ENCOUNTER 2020-10-28 09:58 | Outpatient (CLI) | payer MEDICARE ==
[2020-10-28] MEDS ORDERED: Iopamidol-370 76% 500 ML 1 ML ONE (10:14)
== END 2020-10-28 09:59 | disposition home or self-care (01) ==
LOC: BICCT 09:58
PROVIDERS: ATTEND Thoracic Surgery (Cardiothoracic Vascular Surgery)
DX: D44.6 Neoplasm of uncertain behavior of carotid body (principal)
CPT/HCPCS: 70498; 82565; Q9967

== ENCOUNTER 2020-11-30 12:55 | Outpatient (CLI) | payer MEDICARE ==
[2020-11-30 14:24] LABS: Hemoglobin 14.4 g/dL (13.5-17.5); Mean Corpuscular HGB CONC 32.4 g/dL (32.0-36.0); Mean Corpuscular Hemoglobin 28.6 pg (27.0-33.0); Mean Corpuscular Volume 88.1 fl (81.2-95.1); Mean Platelet Volume 10.2 fl (7.4-10.4); Platelet Count 231 10x3/uL (150-450); RBC Distribution Width 14.7 % (11.5-14.5); Red Blood Cell (RBC) Count 5.04 10x6/uL (4.32-5.72); White Blood Cell (WBC) Count 5.7 10x3/uL (3.5-10.5)
[2020-11-30 14:31] LABS: Anion Gap 13 mmol/L (10-20); BUN (Urea Nitrogen) 17 mg/dL (8.4-25.7); Calc. Creatinine Clearance 0 mL/min (70-130); Calcium 9.6 mg/dL (7.8-10.44); Carbon Dioxide 24 mmol/L (23-31); Chloride 109 mmol/L (98-107); Glucose 93 mg/dL (83-110); Potassium 4.8 mmol/L (3.5-5.1); Sodium 141 mmol/L (136-145)
[2020-11-30 14:38] LABS: SARS-CoV-2 NAA Rapid Test Not Detected (NotDetected)
== END 2020-11-30 12:56 | disposition home or self-care (01) ==
LOC: LABBT 12:55
PROVIDERS: ATTEND Thoracic Surgery (Cardiothoracic Vascular Surgery)
DX: Z01.812 Encounter for preprocedural laboratory examination (principal); Z20.822 Contact with and (suspected) exposure to COVID-19
CPT/HCPCS: 80048; 85027; U0002

== ENCOUNTER 2020-11-30 13:15 | Inpatient (IN) | payer MEDICARE ==
[2020-11-30 12:27] VITALS: BMI 31.5
[2020-12-01] MEDS ORDERED: ceFAZolin 2 GM/DEX 5% 100 ML BAG ONE (08:35)
[2020-12-01] MEDS ORDERED: Midazolam HCl 2 mg/2 ml Vial ONE (09:49)
[2020-12-01] MEDS ORDERED: Fentanyl 250 MCG/5 ML VIAL ONE (09:49)
[2020-12-01] MEDS ORDERED: Rocuronium Bromide 10 MG/ML (10ML VIAL) ONE (10:03)
[2020-12-01] MEDS ORDERED: Metoprolol Tartrate 5 MG/5 ML VIAL ONE (10:03)
[2020-12-01] MEDS ORDERED: Ondansetron PF 4 MG/2 ML Vial ONE ×2 (10:03→13:08)
[2020-12-01] MEDS ORDERED: ePHEDrine 50 MG/ML VIAL ONE (10:03)
[2020-12-01] MEDS ORDERED: PROPOFOL 200 MG/20 ML VIAL ONE (10:03)
[2020-12-01] MEDS ORDERED: Glycopyrrolate 0.2 MG/ML 5 ML SYRINGE ONE (10:03)
[2020-12-01] MEDS ORDERED: EPINEPHrine 1 MG/ML AMP ONE (11:14)
[2020-12-01] MEDS ORDERED: Bupivacaine PF 0.5% 30 ML VIAL ONE (11:14)
[2020-12-01] MEDS ORDERED: Promethazine HCl 25 MG/ML VIAL IM PRN (11:49)
[2020-12-01] MEDS ORDERED: Acetaminophen 325 MG TAB PO PRN (11:49)
[2020-12-01] MEDS ORDERED: Fentanyl 100 MCG/2 ML VIAL SLOW IVP PRN ×2 (11:49)
[2020-12-01] MEDS ORDERED: Sodium Chloride 0.9% 1,000 ML IV SCH (11:49)
[2020-12-01] MEDS ORDERED: niCARdipine 25 MG in Sodium Chloride 0.9% 250 ML 250 ML IVPB PRN (11:49)
[2020-12-01] MEDS ORDERED: HYDROcodone/Acetaminophen 5/325 mg Tablet PO PRN (11:49)
[2020-12-01] MEDS ORDERED: Phenylephrine 40 MG in Sodium Chloride 0.9% 250 ML 250 ML IVPB PRN (11:49)
[2020-12-01] MEDS ORDERED: Polyethylene Glycol 3350 17 GM Packet PO PRN (11:49)
[2020-12-01] MEDS ORDERED: Ondansetron PF 4 MG/2 ML Vial IVP PRN (11:49)
[2020-12-01] MEDS ORDERED: Nitroglycerin 50 MG/250 ML BOT 250 ML IVPB PRN (11:49)
[2020-12-01] MEDS ORDERED: Acetaminophen 325 MG TAB ONE (11:55)
[2020-12-01] MEDS ORDERED: Fentanyl 100 MCG/2 ML VIAL ONE (11:55)
[2020-12-01] MEDS ORDERED: Nitroglycerin 50 MG/250 ML BOT 250 ML ONE (11:55)
[2020-12-01] MEDS ORDERED: Heparin 5,000 UNITS/ML VIAL ONE (11:56)
[2020-12-01] MEDS ORDERED: HYDROcodone/Acetaminophen 5/325 mg Tablet ONE (12:44)
[2020-12-01] MEDS: HYDROcodone/Acetaminophen 5/325 mg Tablet PO PRN ×3 (12:50→19:46)
[2020-12-01] MEDS: ceFAZolin Sodium/D5W 2 GM in Premix Bag 1 BAG IVPB SCH (16:04)
[2020-12-01] MEDS ORDERED: Amlodipine 5 MG TAB PO SCH (18:00)
[2020-12-01 18:40] VITALS: BP 182/87
[2020-12-01] MEDS ORDERED: Rosuvastatin 20 MG TAB PO SCH (21:00)
[2020-12-01] MEDS ORDERED: Dutasteride 0.5 MG CAP PO SCH (21:00)
[2020-12-02] MEDS: ceFAZolin Sodium/D5W 2 GM in Premix Bag 1 BAG IVPB SCH ×2 (00:26→08:39)
[2020-12-02] MEDS: HYDROcodone/Acetaminophen 5/325 mg Tablet PO PRN (02:17)
[2020-12-02 09:00] VITALS: TEMP 98.5
[2020-12-02] MEDS ORDERED: Aspirin Chewable 81 MG TAB PO SCH (09:00)
[2020-12-02] MEDS ORDERED: Lisinopril 5 MG TAB PO SCH (09:00)
== END 2020-12-02 10:00 | disposition home or self-care (01) | DRG 983 ==
LOC: SURG A 12-01 07:54 → EDSTATUS 12-01 13:15 → CCU 12-01 15:01
PROVIDERS: ADMIT Thoracic Surgery (Cardiothoracic Vascular Surgery); ATTEND Thoracic Surgery (Cardiothoracic Vascular Surgery)
PROC: 0GB70ZZ Excision of Right Carotid Body, Open Approach (ICD-10-PCS; principal; 2020-12-01)
DX: D44.6 Neoplasm of uncertain behavior of carotid body (principal); Z20.822 Contact with and (suspected) exposure to COVID-19; I10 Essential (primary) hypertension; E78.5 Hyperlipidemia, unspecified; M19.90 Unspecified osteoarthritis, unspecified site; Z96.641 Presence of right artificial hip joint; R13.10 Dysphagia, unspecified; K59.00 Constipation, unspecified; J30.2 Other seasonal allergic rhinitis; K76.0 Fatty (change of) liver, not elsewhere classified; G89.4 Chronic pain syndrome; E66.9 Obesity, unspecified; N40.0 Benign prostatic hyperplasia without lower urinary tract symptoms; Z79.899 Other long term (current) drug therapy; Z95.1 Presence of aortocoronary bypass graft; Z79.82 Long term (current) use of aspirin; Z87.891 Personal history of nicotine dependence; Z68.30 Body mass index [BMI] 30.0-30.9, adult
CPT/HCPCS: 80048; 85027; 88305; 88313; 88341; 88342; J0171; J1642; J1644; J2250; J2405; J2704; J3010; J3490; J7050; S0020; U0002

== ENCOUNTER 2021-06-22 17:30 | Outpatient (CLI) | payer MEDICARE | END 2021-06-22 17:31 | disposition home or self-care (01) | LOC: SLEEPLAB 17:30 | PROVIDERS: ATTEND Internal Medicine Critical Care Medicine | DX: G47.33 Obstructive sleep apnea (adult) (pediatric) (principal); R53.83 Other fatigue; R09.89 Other specified symptoms and signs involving the circulatory and respiratory systems; I10 Essential (primary) hypertension; K21.9 Gastro-esophageal reflux disease without esophagitis; G47.00 Insomnia, unspecified | CPT/HCPCS: 95800 ==

== ENCOUNTER 2021-08-02 16:16 | Emergency (ER) | payer MEDICARE ==
[2021-08-02 16:41] LABS: #Eosinphils 0.1 thou/uL (0.0-0.7); #Lymphocytes 1.6 thou/uL (1.20-3.40); #Monocytes 0.6 thou/uL (0.11-0.59); %Basophils 0.1 % (0.0-1.0); %Eosinophils 1.5 % (0.0-10.0); %Lymphocytes 18.6 % (21.0-51.0); %Monocytes 7.2 % (0.0-10.0); %Neutrophils 72.6 % (42.0-75.0); Hemoglobin 15.4 g/dL (14.0-18.0); Mean Corpuscular HGB CONC 33.3 g/dL (32.0-36.0); Mean Corpuscular Hemoglobin 31.5 pg (27.0-31.0); Mean Corpuscular Volume 94.7 fL (78.0-98.0); Mean Platelet Volume 6.6 fL (7.4-10.4); Platelet Count 245 thou/uL (130-400); RBC Distribution Width 12.1 % (11.5-14.5); White Blood Cell (WBC) Count 8.3 thou/uL (4.8-10.8)
[2021-08-02 17:06] LABS: ALT (SGPT) 20 U/L (8-55); AST (SGOT) 24 U/L (5-34); Alkaline Phosphatase 86 U/L (40-110); Anion Gap 11 mmol/L (10-20); BUN (Urea Nitrogen) 27 mg/dL (8.4-25.7); Bilirubin, Total 0.6 mg/dL (0.2-1.2); Calc. Creatinine Clearance 0 mL/min (70-130); Carbon Dioxide 26 mmol/L (23-31); Chloride 107 mmol/L (98-107); Globulin 2.6 g/dL (2.4-3.5); Glucose 93 mg/dL (83-110); Potassium 4.7 mmol/L (3.5-5.1); Protein, Total 6.6 g/dL (5.8-8.1); Sodium 139 mmol/L (136-145)
== END 2021-08-02 20:25 | disposition home or self-care (01) ==
LOC: ERS 16:16
DX: M54.2 Cervicalgia (principal); M62.838 Other muscle spasm; I10 Essential (primary) hypertension; K21.9 Gastro-esophageal reflux disease without esophagitis; E78.5 Hyperlipidemia, unspecified; Z79.899 Other long term (current) drug therapy
CPT/HCPCS: 36415; 71045; 80053; 82550; 84484; 85025; 93005

== ENCOUNTER 2021-11-29 10:21 | Emergency (ER) | payer MEDICARE ==
[2021-11-29 11:43] LABS: #Eosinphils 0.1 thou/uL (0.0-0.7); #Monocytes 0.5 thou/uL (0.11-0.59); #Neutrophils 5.1 thou/uL (1.40-6.50); %Basophils 0.3 % (0.0-1.0); %Lymphocytes 14.9 % (21.0-51.0); %Monocytes 6.9 % (0.0-10.0); Hemoglobin 14.8 g/dL (14.0-18.0); Mean Corpuscular HGB CONC 32.9 g/dL (32.0-36.0); Mean Corpuscular Hemoglobin 32.6 pg (27.0-31.0); Mean Platelet Volume 7.2 fL (7.4-10.4); Platelet Count 197 thou/uL (130-400); RBC Distribution Width 11.7 % (11.5-14.5); Red Blood Cell (RBC) Count 4.55 mill/uL (4.70-6.10); White Blood Cell (WBC) Count 6.7 thou/uL (4.8-10.8)
[2021-11-29 12:05] LABS: ALT (SGPT) 22 U/L (8-55); AST (SGOT) 33 U/L (5-34); Albumin 3.9 g/dL (3.4-4.8); Alkaline Phosphatase 74 U/L (40-110); Anion Gap 13 mmol/L (10-20); BUN (Urea Nitrogen) 15 mg/dL (8.4-25.7); Bilirubin, Total 0.8 mg/dL (0.2-1.2); Calc. Creatinine Clearance 0 mL/min (70-130); Calcium 8.9 mg/dL (7.8-10.44); Carbon Dioxide 24 mmol/L (23-31); Chloride 103 mmol/L (98-107); Estimated GFR 81; Globulin 2.3 g/dL (2.4-3.5); Glucose 106 mg/dL (83-110); Potassium 4.6 mmol/L (3.5-5.1); Protein, Total 6.2 g/dL (5.8-8.1); Sodium 135 mmol/L (136-145)
== END 2021-11-29 14:02 | disposition home or self-care (01) ==
LOC: ERS 10:21
DX: I10 Essential (primary) hypertension (principal); E78.5 Hyperlipidemia, unspecified; Z79.899 Other long term (current) drug therapy
CPT/HCPCS: 36415; 71045; 80053; 83880; 84484; 85025; 93005

== ENCOUNTER 2022-02-02 01:57 | Emergency (ER) | payer MEDICARE ==
[2022-02-02 02:34] LABS: #Eosinphils 0.1 thou/uL (0.0-0.7); #Lymphocytes 0.7 thou/uL (1.20-3.40); #Monocytes 0.8 thou/uL (0.11-0.59); #Neutrophils 3.9 thou/uL (1.40-6.50); %Basophils 0.7 % (0.0-1.0); %Eosinophils 1.5 % (0.0-10.0); %Lymphocytes 12.6 % (21.0-51.0); %Monocytes 13.5 % (0.0-10.0); %Neutrophils 71.7 % (42.0-75.0); Hemoglobin 15.7 g/dL (14.0-18.0); Mean Corpuscular HGB CONC 34.1 g/dL (32.0-36.0); Mean Corpuscular Hemoglobin 33.9 pg (27.0-31.0); Mean Corpuscular Volume 99.4 fl (78.0-98.0); Mean Platelet Volume 7.1 fL (7.4-10.4); Platelet Count 173 10x3/uL (130-400); RBC Distribution Width 11.4 % (11.5-14.5); Red Blood Cell (RBC) Count 4.64 mill/uL (4.70-6.10); White Blood Cell (WBC) Count 5.5 10x3/uL (4.8-10.8)
[2022-02-02 02:49] LABS: ALT (SGPT) 36 U/L (8-55); AST (SGOT) 32 U/L (5-34); Albumin 4.2 g/dL (3.4-4.8); Alkaline Phosphatase 82 U/L (40-110); Anion Gap 14 mmol/L (10-20); BUN (Urea Nitrogen) 10 mg/dL (8.4-25.7); Calc. Creatinine Clearance 0 mL/min (70-130); Calcium 9.1 mg/dL (7.8-10.44); Carbon Dioxide 25 mmol/L (23-31); Chloride 100 mmol/L (98-107); Estimated GFR 92; Glucose 94 mg/dL (83-110); Potassium 3.9 mmol/L (3.5-5.1); Protein, Total 7.2 g/dL (5.8-8.1); Sodium 135 mmol/L (136-145)
[2022-02-02] MEDS ORDERED: Nitroglycerin 0.4 MG TAB 1 EACH ONE (02:53)
[2022-02-02] MEDS ORDERED: Aspirin Chewable 81 MG TAB ONE (02:53)
== END 2022-02-02 06:37 | disposition home or self-care (01) ==
LOC: ERS 01:57
DX: R07.89 Other chest pain (principal); I10 Essential (primary) hypertension; E78.5 Hyperlipidemia, unspecified; K21.9 Gastro-esophageal reflux disease without esophagitis
CPT/HCPCS: 36415; 71045; 80053; 84484; 85025; 93005

== ENCOUNTER 2022-03-13 07:35 | Outpatient (CLI) | payer MEDICARE | END 2022-03-13 07:36 | disposition home or self-care (01) | LOC: ULT 07:35 | PROVIDERS: ATTEND Internal Medicine Cardiovascular Disease | DX: I20.9 Angina pectoris, unspecified (principal); N32.3 Diverticulum of bladder | CPT/HCPCS: 76770; 93975 ==

== ENCOUNTER 2022-12-25 13:26 | Outpatient (CLI) | payer MEDICARE | END 2022-12-25 13:27 | disposition home or self-care (01) | LOC: SCSRAD 13:26 | PROVIDERS: ATTEND Family Medicine | DX: R05.3 Chronic cough (principal) | CPT/HCPCS: 71046 ==

== ENCOUNTER 2023-03-18 00:28 | Emergency (ER) | payer MEDICARE ==
[2023-03-18 01:37] LABS: #Basophils 0.1 thou/uL (0.0-0.2); #Eosinphils 0.1 thou/uL (0.0-0.7); #Monocytes 0.6 thou/uL (0.11-0.59); #Neutrophils 2.5 thou/uL (1.40-6.50); %Basophils 1.1 % (0.0-1.0); %Eosinophils 2.8 % (0.0-10.0); %Lymphocytes 28.8 % (21.0-51.0); %Monocytes 12.9 % (0.0-10.0); %Neutrophils 54.2 % (42.0-75.0); Hematocrit 41.1 % (42.0-52.0); Hemoglobin 13.5 g/dL (14.0-18.0); Mean Corpuscular HGB CONC 32.8 g/dL (32.0-36.0); Mean Corpuscular Hemoglobin 30.6 pg (27.0-31.0); Mean Corpuscular Volume 93.2 fl (78.0-98.0); Mean Platelet Volume 9.9 fL (7.4-10.4); Platelet Count 206 10x3/uL (130-400); RBC Distribution Width 12.8 % (11.5-14.5); Red Blood Cell (RBC) Count 4.41 mill/uL (4.70-6.10); White Blood Cell (WBC) Count 4.6 10x3/uL (4.8-10.8)
[2023-03-18 02:04] LABS: ALT (SGPT) 15 U/L (8-55); AST (SGOT) 28 U/L (5-34); Albumin 3.9 g/dL (3.4-4.8); Alkaline Phosphatase 85 U/L (40-110); Anion Gap 11 mmol/L (10-20); BUN (Urea Nitrogen) 16 mg/dL (8.4-25.7); Bilirubin, Total 0.4 mg/dL (0.2-1.2); Calc. Creatinine Clearance 0 mL/min (70-130); Calcium 9.2 mg/dL (7.8-10.44); Carbon Dioxide 25 mmol/L (23-31); Chloride 106 mmol/L (98-107); Estimated GFR 76; Globulin 2.6 g/dL (2.4-3.5); Glucose 94 mg/dL (83-110); Lipase 41 U/L (8-78); Potassium 4.3 mmol/L (3.5-5.1); Protein, Total 6.5 g/dL (5.8-8.1); Sodium 138 mmol/L (136-145)
[2023-03-18 02:08] LABS: Troponin I Less than 0.010 ng/mL (< 0.028)
[2023-03-18 04:25] LABS: Troponin I Less than 0.010 ng/mL (< 0.028)
== END 2023-03-18 05:25 | disposition home or self-care (01) ==
LOC: ERS 00:28
DX: R07.9 Chest pain, unspecified (principal); I10 Essential (primary) hypertension
CPT/HCPCS: 36415; 71045; 80053; 83690; 84484; 85025; 93005; 94760